=== PATIENT | female | born 1950 | race Caucasian/White ===

== ENCOUNTER 2019-08-21 21:26 | Emergency (ER) | payer MEDICARE ==
[~2019-08-21] VITALS: Ht 160 cm; Wt 50.3 kg
[2019-08-21] MEDS ORDERED: LORazepam 0.5 MG TAB PO ONE (21:45)
[2019-08-22 00:05] VITALS: BP 140/69
== END 2019-08-22 00:12 | disposition home or self-care (01) ==
LOC: ER 21:30
DX: F41.9 Anxiety disorder, unspecified (principal); I10 Essential (primary) hypertension; Z88.6 Allergy status to analgesic agent